=== PATIENT | female | born 1975 | race American Indian/Alaskan Native ===

== ENCOUNTER 2016-11-28 10:50 | Emergency (ER) | payer MEDICAID ==
[2016-11-28 11:08] VITALS: BP 124/83
--- NOTE | 2016-11-28 12:39 | Emergency Department Report ---
Chief Complaint: Chest Pain Stated Complaint: CHEST PAIN Time Seen by Provider: 11/28/16 11:31 - HPI History of Present Illness: Patient is a 41-year-old special needs female who presents to ED complaining of acid reflux 1 day. Patient states she has a history of GERD and sometimes it flares up. Patient states she ate fri yesterday and Fridays retentive cerebral her acid reflux. Patient states he has pain in her stomach. Patient describes pain as crampy type, 4 out of 10. She states she takes no medications for GERD. Patient denies fevers/chills/nausea/vomiting/chest pain/shortness of breath/ dizziness/headache or any other problems. - ROS Review of Systems: As noted in HPI - Exam Vital Signs: Vital Signs 11/28/16 11:03 Temperature 98.0 F Pulse Rate 98 H Respiratory 20 Rate Blood Pressure 124/83 O2 Sat by Pulse 100 Oximetry Physical Exam: GENERAL: Alert and oriented x3, no apparent distress, abNormal Gait, atraumatic , cannot sit still. HEAD: Head is normocephalic and a-traumatic. EYES: Extra ocular muscles are intact. Pupils are equal, round, and reactive to light and accommodation. EARS: symetrical, atraumatic, non tender, ear canal clear and moderate cerumen, tympanic membrance non inflamed. gross auditory nml bilaterally. MOUTH:Mouth is well hydrated and without lesions. Tonsils nonerythematous or swollen, Uvula midline, Tongue not elevated. Mucous membranes are moist. Posterior pharynx clear, no exudate or lesions. Patent airways. NECK: Supple. Non edematous, No carotid bruits. No lymphadenopathy or thyromegaly. LUNGS: Symetrical with respiration, No wheezing, no rales or crackles, CTAB. HEART: S1, S2 present, regular rate and rhythm without murmur, no rubs, no gallops. ABDOMEN: No organomegaly was noted,Positive bowel sounds, soft, and non- distended. . Nontender to palpation on all Quadrants, NO CVA tenderness. MSE screening note: Focused history and physical exam performed. Due to findings the following was ordered: ED Medical Decision Making - Lab Data Result diagrams: 11/28/16 13:43 11/28/16 13:43 - Medical Decision Making 41-year-old female vital signs stable. Patient is in no acute respiratory distress. Patient is a ULICES 5 and can be seen at [facility] if all labs are wnl. Otherwise waiting to see a physician on the main side ED Disposition for MSE Condition: Stable
[2016-11-28 14:07] LABS: Basophils % (Auto) 1.2 % (0.0-1.8); Eosinophils % (Auto) 1.7 % (0.0-4.3); Hematocrit 36.8 % (30.3-42.9); Hemoglobin 12.1 gm/dl (10.1-14.3); Mean Corpuscular HGB Conc 33 % (30-34); Mean Corpuscular Hemoglobin 30 pg (28-32); Mean Corpuscular Volume 92 fl (79-97); Platelet Count 220 K/mm3 (140-440); Red Blood Count 4.02 M/mm3 (3.65-5.03); Red Cell Distribution Width 13.9 % (13.2-15.2); White Blood Count 4.5 K/mm3 (4.5-11.0)
[2016-11-28 14:16] LABS: Amylase 189 units/L (27-131); Anion Gap 14 mmol/L; Blood Urea Nitrogen 9 mg/dL (7-17); Calcium 8.6 mg/dL (8.4-10.2); Carbon Dioxide 28 mmol/L (22-30); Chloride 99.5 mmol/L (98-107); Glucose 94 mg/dL (65-100); Lipase 34 units/L (13-60); Potassium 4.5 mmol/L (3.6-5.0); Sodium 137 mmol/L (137-145)
== END 2016-11-28 17:50 | disposition left against medical advice (07) ==
LOC: ED 10:50
DX: K21.9 Gastro-esophageal reflux disease without esophagitis (principal); Z53.21 Procedure and treatment not carried out due to patient leaving prior to being seen by health care provider
CPT/HCPCS: 36415; 80048; 82150; 83690; 85025; 93005; 93010

== ENCOUNTER 2017-02-24 08:37 | Emergency (ER) | payer MEDICAID ==
[2017-02-24 09:17] LABS: Basophils % (Auto) 0.6 % (0.0-1.8); Eosinophils % (Auto) 4.1 % (0.0-4.3); Hematocrit 35.2 % (30.3-42.9); Hemoglobin 11.7 gm/dl (10.1-14.3); Mean Corpuscular HGB Conc 33 % (30-34); Mean Corpuscular Hemoglobin 31 pg (28-32); Mean Corpuscular Volume 93 fl (79-97); Platelet Count 239 K/mm3 (140-440); Red Cell Distribution Width 13.4 % (13.2-15.2); White Blood Count 3.7 K/mm3 (4.5-11.0)
[2017-02-24 09:34] LABS: Alanine Aminotransferase 14 units/L (7-56); Albumin 4.1 g/dL (3.9-5); Albumin/Globulin Ratio 1.5 %; Alkaline Phosphatase 52 units/L (35-129); Anion Gap 15 mmol/L; BUN/Creatinine Ratio 23.33; Bilirubin,Total 0.6 mg/dL (0.1-1.2); Blood Urea Nitrogen 14 mg/dL (7-17); Calcium 8.8 mg/dL (8.4-10.2); Carbon Dioxide 28 mmol/L (22-30); Chloride 102.1 mmol/L (98-107); Glucose 94 mg/dL (65-100); Lipase 44 units/L (13-60); Potassium 3.9 mmol/L (3.6-5.0); Sodium 141 mmol/L (137-145); Total Protein 6.8 g/dL (6.3-8.2)
[2017-02-24 20:17] VITALS: BP 123/78
[2017-02-24] MEDS ORDERED: VALIUM IM ONE (21:15)
[2017-02-24] MEDS ORDERED: PEPCID PO ONE (21:15)
--- NOTE | 2017-02-24 21:58 | Emergency Department Report ---
HPI - General Chief Complaint: Abdominal Pain Time Seen by Provider: 02/24/17 20:29 - HPI HPI: The patient is a 41-year-old female whom presents for evaluation of abdominal pain. The patient reports epigastric abdominal pain since 3 AM last night, sharp in quality, 10/10 in severity, constant since onset. She reports associated nausea without emesis. The patient denies fever, chills, night sweats , diarrhea, blood in the stool, dark tarry stool, dysuria, hematuria, flank pain , genital discharge, inability to pass flatus. ED Past Medical Hx - Past Medical History Previous Medical History?: Yes Hx GERD: Yes Hx Psychiatric Treatment: Yes Additional medical history: Tardive dyskenisia, Right eye cataract - Surgical History Past Surgical History?: Yes Additional Surgical History: x1 - Social History Smoking Status: Never Smoker Substance Use Type: Prescribed - Medications Home Medications: Home Medications Medication Instructions Recorded Confirmed Last Taken Type LORazepam [Ativan] 2 mg PO Q8HR PRN #20 tablet 07/07/15 02/24/17 Unknown Rx Diphenoxylate HCl/Atropine 1 each PO QID PRN #10 tablet 09/18/16 02/24/17 Unknown Rx [Lomotil 2.5-0.025 mg Tablet] Ondansetron [Zofran ODT TAB] 8 mg PO Q8HR #20 tab.rapdis 09/18/16 02/24/17 Unknown Rx Famotidine [Pepcid] 20 mg PO BID #30 tablet 02/24/17 Unknown Rx traMADol [Ultram 50 MG tab] 50 mg PO Q6HR PRN #10 tablet 02/24/17 Unknown Rx ED Review of Systems ROS: Stated complaint: HEARTBURN Other details as noted in HPI Constitutional: denies: fever ENT: denies: throat or neck pain Respiratory: denies: cough, shortness of breath Cardiovascular: denies: chest pain Endocrine: denies unexplained weight loss or gain Gastrointestinal: reports abdominal pain, nausea Genitourinary: denies: dysuria Musculoskeletal: denies: leg swelling Skin: denies: rash Neurological: denies: headache Hematological/Lymphatic: denies: easy bleeding or easy bruising Psych: denies sadness or hopelessness Physical Exam - Physical Exam Vital Signs: Vital Signs 02/24/17 02/24/17 08:58 20:17 Temperature 98.3 F 98 F Pulse Rate 112 H 103 H Respiratory 20 18 Rate Blood Pressure 124/89 Blood Pressure 123/78 [Left] O2 Sat by Pulse 99 97 Oximetry Physical Exam: General: well-nourished, well-developed, no acute distress Head: Normocephalic, atraumatic Eyes: normal sclera ENT: Mucous membranes are pink and moist Neck: trachea midline, neck supple, No neck stiffness, no cervical adenopathy Respiratory: Breath sounds equal bilaterally, no wheezing, rales, or rhonchi Cardio: S1 and S2 present, no murmurs, rubs, gallops, capillary refill is brisk Abdomen: Normoactive bowel sounds, soft abdomen, epigastric tenderness to palpation present, no rigidity, no guarding or rebound tenderness Musc: No pitting edema Skin: No rash Neuro: no facial drooping, normal speech Psych: Normal affect, rhythmic smacking of the mouth present ED Course Vital Signs 02/24/17 02/24/17 08:58 20:17 Temperature 98.3 F 98 F Pulse Rate 112 H 103 H Respiratory 20 18 Rate Blood Pressure 124/89 Blood Pressure 123/78 [Left] O2 Sat by Pulse 99 97 Oximetry ED Medical Decision Making - Lab Data Result diagrams: 02/24/17 09:08 02/24/17 09:08 - Medical Decision Making The patient was seen and examined by myself. The patient is placed on a court monitor and continuous pulse ox. On initial evaluation, the patient was found to be in no distress. Evaluation orders are placed. The patient is given A tablet of Pepcid and an IM dose of Valium for her pain. Lab results were non-concerning including WBC, hemoglobin, hematocrit, electrolytes, renal function, LFTs, lipase. The patient was reevaluated and reported that their symptoms were markedly improved. The patient is stable for discharge with outpatient follow-up. The patient is given follow-up and return instructions. The patient expressed understanding and agreed with the plan. The patient is discharged in stable condition. Critical care attestation.: If time is entered above; I have spent that time in minutes in the direct care of this critically ill patient, excluding procedure time. ED Disposition Clinical Impression: Abdominal pain, acute, epigastric, Tardive dyskinesia, Dehydration Disposition: DISCHARGED TO HOME OR SELFCARE Is pt being admited?: No Does the pt Need Aspirin: No Condition: Stable Instructions: Abdominal Pain (ED) Prescriptions: Famotidine [Pepcid] 20 mg PO BID #30 tablet traMADol [Ultram 50 MG tab] 50 mg PO Q6HR PRN #10 tablet PRN Reason: Pain Referrals: PRIMARY CARE,MD [Primary Care Provider] - 3-5 Days Time of Disposition: 21:50
== END 2017-02-24 22:36 | disposition home or self-care (01) ==
LOC: ED 08:37
DX: G24.01 Drug induced subacute dyskinesia (principal); E86.0 Dehydration; K21.9 Gastro-esophageal reflux disease without esophagitis; Z98.890 Other specified postprocedural states
CPT/HCPCS: 36415; 80053; 83690; 85025; 96372; 99284; J3360

== ENCOUNTER 2017-04-11 18:08 | Emergency (ER) | payer MEDICAID ==
[2017-04-11 19:14] LABS: Basophils % (Auto) 0.8 % (0.0-1.8); Eosinophils % (Auto) 7.1 % (0.0-4.3); Hematocrit 35.1 % (30.3-42.9); Hemoglobin 11.6 gm/dl (10.1-14.3); Mean Corpuscular HGB Conc 33 % (30-34); Mean Corpuscular Hemoglobin 31 pg (28-32); Mean Corpuscular Volume 93 fl (79-97); Platelet Count 214 K/mm3 (140-440); Red Blood Count 3.78 M/mm3 (3.65-5.03); Red Cell Distribution Width 13.6 % (13.2-15.2); White Blood Count 3.4 K/mm3 (4.5-11.0)
[2017-04-11 19:56] LABS: Anion Gap 14 mmol/L; Blood Urea Nitrogen 12 mg/dL (7-17); Calcium 8.4 mg/dL (8.4-10.2); Carbon Dioxide 26 mmol/L (22-30); Glucose 101 mg/dL (65-100); Potassium 4.4 mmol/L (3.6-5.0); Sodium 142 mmol/L (137-145)
[2017-04-12 06:07] VITALS: BP 116/80
--- NOTE | 2017-04-12 07:42 | Emergency Department Report ---
ED Chest Pain HPI - General Chief Complaint: Chest Pain Stated Complaint: AMS Time Seen by Provider: 04/12/17 06:54 Source: patient Mode of arrival: Ambulatory Limitations: No Limitations - History of Present Illness Initial Comments: This is a 41-year-old Afro[place] female who presents to the emergency department via EMS from home with complaint of some chest pain that started yesterday. She has a past medical history of tardive dyskinesia and some psychiatric history. Patient apparently was laughing and talkative through triage. When I approach the patient for initial evaluation she is resting comfortably. I woke her up from sleep and she says that she has no discomfort and is asking when she can go home. She does admit to calling EMS yesterday for her chest pain complaint. She does have some history of acid reflux. She denies any shortness of breath, fever, cough, nausea, vomiting or diaphoresis. She does not have a primary care doctor. Severity scale (0 -10): 0 - Related Data Previous Rx's Medication Instructions Recorded Last Taken Type LORazepam [Ativan] 2 mg PO Q8HR PRN #20 tablet 07/07/15 Unknown Rx Diphenoxylate HCl/Atropine 1 each PO QID PRN #10 tablet 09/18/16 Unknown Rx [Lomotil 2.5-0.025 mg Tablet] Ondansetron [Zofran ODT TAB] 8 mg PO Q8HR #20 tab.rapdis 09/18/16 Unknown Rx Famotidine [Pepcid] 20 mg PO BID #30 tablet 02/24/17 Unknown Rx traMADol [Ultram 50 MG tab] 50 mg PO Q6HR PRN #10 tablet 02/24/17 Unknown Rx Allergies Allergy/AdvReac Type Severity Reaction Status Date / Time diphenhydramine HCl Allergy Itching Verified 02/01/16 15:17 [From Benadryl] haloperidol [From Haldol] Allergy Hives Verified 02/01/16 15:17 haloperidol lactate Allergy Hives Verified 02/01/16 15:17 [From Haldol] quetiapine fumarate Allergy Rash Verified 02/01/16 15:17 [From Seroquel] NAOMI score - Naomi Score Age > 65: (0) No Aspirin use within the Past 7 Days: (0) No 3 or more CAD Risk Factors: (0) No 2 or more Angina events in past 24 hrs: (0) No Known CAD with more than 50% Stenosis: (0) No Elevated Cardiac Markers: (0) No ST Deviation Greater than 0.5mm: (0) No NAOMI Score: 0 ED Review of Systems ROS: Stated complaint: AMS Other details as noted in HPI Comment: All other systems reviewed and negative Constitutional: denies: chills, fever Eyes: denies: eye pain, eye discharge, vision change ENT: denies: ear pain, throat pain Respiratory: denies: cough, shortness of breath, wheezing Cardiovascular: chest pain. denies: palpitations Gastrointestinal: denies: abdominal pain, nausea, diarrhea Genitourinary: denies: urgency, dysuria, discharge Musculoskeletal: denies: back pain, joint swelling, arthralgia Skin: denies: rash, lesions Neurological: denies: headache, weakness, paresthesias ED Past Medical Hx - Past Medical History Hx GERD: Yes Hx Psychiatric Treatment: Yes Additional medical history: Tardive dyskenisia, Right eye cataract - Surgical History Additional Surgical History: x1 - Social History Smoking Status: Unknown if ever smoked Substance Use Type: None - Medications Home Medications: Home Medications Medication Instructions Recorded Confirmed Last Taken Type LORazepam [Ativan] 2 mg PO Q8HR PRN #20 tablet 07/07/15 02/24/17 Unknown Rx Diphenoxylate HCl/Atropine 1 each PO QID PRN #10 tablet 09/18/16 02/24/17 Unknown Rx [Lomotil 2.5-0.025 mg Tablet] Ondansetron [Zofran ODT TAB] 8 mg PO Q8HR #20 tab.rapdis 09/18/16 02/24/17 Unknown Rx Famotidine [Pepcid] 20 mg PO BID #30 tablet 02/24/17 Unknown Rx traMADol [Ultram 50 MG tab] 50 mg PO Q6HR PRN #10 tablet 02/24/17 Unknown Rx ED Physical Exam - General Limitations: No Limitations - Other Other exam information: GENERAL: The patient is well-developed well-nourished. HEENT: Normocephalic. Atraumatic. Extraocular motions are intact. Patient has moist mucous membranes. Pupils equal reactive to light bilaterally. NECK: Supple. Trachea is midline. CHEST/LUNGS: Clear to auscultation. There is no respiratory distress noted. HEART/CARDIOVASCULAR: Regular. There is no tachycardia. There is no gallop rub or murmur. ABDOMEN: Abdomen is soft, nontender. Patient has normal bowel sounds. There is no abdominal distention. SKIN: Skin is warm and dry. NEURO: The patient is awake, alert. The patient is cooperative. The patient has no focal neurologic deficits. The patient has normal speech. MUSCULOSKELETAL: There is no tenderness or deformity. There is no limitation range of motion. There is no evidence of acute injury. ED Course Vital Signs 04/11/17 04/12/17 18:16 06:00 Temperature 98.2 F 98.4 F Pulse Rate 80 93 H Respiratory 18 20 Rate Blood Pressure 117/76 116/80 O2 Sat by Pulse 99 100 Oximetry ED Medical Decision Making - Lab Data Result diagrams: 04/11/17 18:38 04/11/17 18:38 - EKG Data -: EKG Interpreted by Me EKG shows normal: sinus rhythm, axis, intervals (left anterior fascicular block) , QRS complexes, ST-T waves (nonspecific ST-T changes) Rate: normal - EKG Data When compared to previous EKG there are: previous EKG unavailable Interpretation: other (left anterior fascicular block, nonspecific ST-T changes) - Radiology Data Radiology results: image reviewed interpreted by me: Chest x-ray did not show any acute process. Heart is normal shape and size. No effusions. No pneumothorax. No signs of pneumonia seen. - Medical Decision Making 41-year-old female presents the emergency department originally with complaint of chest pain. Patient was evaluated with physical exam, labs, imaging EKG. EKG does not show any signs of ST elevation MA. Chest x-ray does not show any acute process. Labs are unremarkable including negative troponins 2. Repeat of this chart to see this patient at 6 AM and by that time the patient is asymptomatic and has not had any chest pain for many hours. She has some history of schizophrenia and tardive dyskinesia but otherwise she has very low risk factors for coronary artery disease. She has a NAOMI score of 0. She is low on the heart score criteria. She is negative on the pulmonary embolism rule out criteria. For all these reasons the patient appears safe for discharge home and on top of that the patient is asking for discharge home at this time. She was given referrals for primary care and cardiology. She will return to the ER with any worsening of her symptoms or any acute distress. - Differential Diagnosis MA, costochondritis, pneumonia Critical Care Time: No Critical care attestation.: If time is entered above; I have spent that time in minutes in the direct care of this critically ill patient, excluding procedure time. ED Disposition Clinical Impression: Chest pain Qualifiers: Chest pain type: unspecified Qualified Code(s): R07.9 - Chest pain, unspecified Disposition: DC- TO HOME OR SELFCARE Is pt being admited?: No Condition: Stable Instructions: Chest Pain (ED) Additional Instructions: Please follow-up with a primary care physician. I've given a referral for a local healthcare network consultant, Dr. Murphy, in case you would like to follow up regarding her previous chest pain. Return to the emergency department with any worsening of her symptoms or any acute distress. Referrals: [facility] [Outside] - 3-5 Days AMJO MURPHY MD [Staff Physician] - 3-5 Days Time of Disposition: 08:23
--- NOTE | 2017-04-12 08:12 | XRay Report ---
Single view chest: History: Chest pain. Findings: Borderline cardiomegaly. Trachea is midline. No consolidation, pneumothorax or pleural effusion. Impression: No acute cardiopulmonary findings.
== END 2017-04-12 08:56 | disposition home or self-care (01) ==
LOC: ED 18:08
DX: R07.9 Chest pain, unspecified (principal); K21.9 Gastro-esophageal reflux disease without esophagitis; Z88.8 Allergy status to other drugs, medicaments and biological substances
CPT/HCPCS: 36415; 71010; 80048; 84484; 85025; 93005; 93010